=== PATIENT | female | born 1940 ===

== ENCOUNTER 2017-01-20 08:29 | Emergency (ER) | payer OTHER ==
--- NOTE | 2017-01-20 08:39 | UCPHY ---
H & P Patient Type: New HPI/ROS: CHIEF COMPLAINT: Mouth pain, possible tooth infection. HISTORY OF PRESENT ILLNESS: The patient is a 76-year-old female status post tooth extraction 5 days ago who presents with ongoing pain and possible infection of the removal site. Her pain has been constant since the extraction but has not been worsening over that period of time. The pain does not radiate to other parts of her jaw. She has had similar procedures before but the pain usually subsides in 24-48 hours. She also describes the extraction site as looking "whitish" and unusual. She denies fever, sore throat, ear pain, jaw pain , vomiting. She has been treating the pain with aspirin and a topical dental cream. She has been able to eat and drink. She does not describe the pain is severe and, in fact, her main concern is that there is infection. REVIEW OF SYSTEMS: A 10 point review of systems was performed and is negative with the exception of the elements mentioned in the history of present illness. Source: Patient Exam Limitations: No limitations - Medical/Surgical History PMH: Denies. Hx Asthma: No Hx Chronic Respiratory Disease: No Hx Diabetes: No Hx Cardiac Disease: No Hx Renal Disease: No Hx Cirrhosis: No Hx Alcoholism: No Hx HIV/AIDS: No Hx Splenectomy or Spleen Trauma: No - Family History Significant Family History: No pertinent family hx - Social History Smoking Status: Never smoked Additional Social History: Nonsmoker, from [place]. - Physical Exam Exam: A focused physical exam was performed. Afebrile. General Appearance: Alert, no acute distress. ENT, Mouth: Mucous membranes are moist, no oropharyngeal erythema or edema. Gingiva surrounding number 8 tooth slightly erythematous and swollen. No fluctuance. There is whitish discoloration at the site of the extraction with no visible clot. This is not exposed nerve root. This is the site to which she has been applying an anesthetic gel. Neck: No lymphadenopathy, supple. Respiratory: Lungs are clear to auscultation. Cardiovascular: Regular rate and rhythm; no murmur, rub, or gallop. Neurological: Alert and oriented. Moving all four extremities easily and equally. Psychiatric: Normal affect. Constitutional: Initial Vital Signs Temperature (C) 36.5 C 01/20/17 08:42 Heart Rate 96 01/20/17 08:42 Respiratory Rate 16 01/20/17 08:42 Blood Pressure 147/86 H 01/20/17 08:42 O2 Sat (%) 97 01/20/17 08:42 O2 Delivery Mode Room Air Allergies/Adverse Reactions: codeine Allergy (Verified 08/14/15 15:46) Home Medications: Medication Instructions Recorded Cholecalciferol Vit D3 [Vitamin D3 1,000 units PO DAILY 08/14/15 (*)] Clobetasol 0.05% [Temovate 1 savita TP MOWEFR 08/14/15 Ointment] Estradiol [VAGIFEM] 1 tab VG SUWE 08/14/15 Herbals/Supplements -Info Only 1 ea PO DAILY 08/14/15 Penicillin V Potassium [Penicillin 500 mg PO QID #28 tab 01/20/17 VK] Medical Decision Making ED Course/Re-evaluation: This 76-year-old female had her number 8 tooth removed 5 days ago and presents today because her pain has not subsided yet, nor has it worsened dramatically. She reports that with her previous extractions the pain has usually subsided by this time. She does not have a fever, sore throat, vomiting, jaw pain, or other associated symptoms. On exam the gingiva surrounding the tooth is slightly erythematous and swollen. This does not have the appearance of alveolar osteitis. There is no fluctuance and I do not suspect abscess. I am starting an antibiotic with the thought that there could be infection. She does not appear toxic. She is being started on penicillin. She will follow up with her dentist tomorrow. Differential Diagnosis: I considered a differential diagnosis that includes but is not limited to alveolar osteitis, infection at site of extraction, dental abscess, and gingivitis. - Data Points Medications Given: Discontinued Medications Penicillin V Potassium (Pen Vk 250 Mg Prepack#6) 1 btl TAKEHOME EDNOW ONE PRN Reason: Protocol Stop: 01/20/17 09:04 Last Admin: 01/20/17 09:16 Dose: 1 btl Penicillin V Potassium (Pen Vk) 500 mg PO EDNOW ONE PRN Reason: Protocol Stop: 01/20/17 09:15 Last Admin: 01/20/17 09:17 Dose: 500 mg Departure - Departure Disposition: Home, Routine, Self-Care Clinical Impression: Dental infection, Pain, dental Condition: Good Instructions: Penicillin V (By mouth), Toothache (ED) Additional Instructions: Take Penicillin as prescribed. Follow up with your dentist this week for reevaluation. Call tomorrow morning. Return to the emergency department if you experience any serious worsening of condition such as facial swelling, fever, earache, or significantly worse pain. Referrals: Nargis Corrales MD [Primary Care Provider] - As per Instructions Prescriptions: Penicillin V Potassium [Penicillin VK] 500 mg PO QID #28 tab - PQRS PQRS Measurement: 134: Depression screening and followup, PRIME MD-PHQ2 (12 years and older) Over the last 2 weeks, how often have you been bothered by any of the following problems? 1. Feeling down, depressed, or hopeless? 2. Little interest or pleasure in doing things? Patient answered no to both 1 and 2 130: Documentation of medications. Reviewed all patient medications, doses, route and frequency. 226: Do you smoke? No. 47: 65 and older: Advanced care planning. Patient has advanced directive. 51: 18 years old and older with diagnosis of COPD, spirometry performance. Patient has no history of COPD 52: 18 years old and older with COPD and symptoms of COPD or FEV1<60% predicted prescribed a B Agonist. Spirometry not performed; equipment not available. Report Scribed for: Anne Arana Report Scribed by: Valentín Zapata Date of Report: 01/20/17 Time of Report: 08:39 Physician Review and Approval Statement: 01/20/17 08:47 Portions of this note were transcribed by the infertility medical assistant. I, Dr. Anne Arana, personally performed the history, physical exam, and medical decision- making; and confirmed the accuracy of the information in the transcribed note.
[2017-01-20 08:48] VITALS: BP 147/86; PULSE 96; RESP 16; TEMP 97.7; O2SAT 97
[2017-01-20] MEDS ORDERED: PENICILLIN VK 250MG PREPACK#6 BTL TAKEHOME ONE (09:03)
[2017-01-20] MEDS ORDERED: PENICILLIN VK 500 MG TAB ONE (09:09)
[2017-01-20] MEDS ORDERED: PENICILLIN VK 500 MG TAB PO ONE (09:14)
== END 2017-01-20 09:17 | disposition home or self-care (01) ==
LOC: CED 08:29
DX: K13.79 Other lesions of oral mucosa (principal); Z98.890 Other specified postprocedural states
CPT/HCPCS: 99204-PO; G0463-PO

== ENCOUNTER → 2018-02-17 | Outpatient (CLI) | payer OTHER | LOC: CIMAGING 07:46 | PROVIDERS: ATTEND Family Medicine | DX: Z12.31 Encounter for screening mammogram for malignant neoplasm of breast (principal) ==